=== PATIENT | female | born 1985 | race Caucasian/White ===

== ENCOUNTER 2016-08-03 05:34 | Inpatient (IN) | payer OTHER ==
[~2016-08-03] VITALS: Ht 172.7 cm; Wt 138.8 kg
[2016-08-03 05:57] VITALS: BP 131/90
[2016-08-03] MEDS ORDERED: PRENATAL TABLE1 EAC2 PO (07:31)
--- NOTE | 2016-08-03 07:37 | History & Physical ---
General Information and HPI MD Statement: I have seen and personally examined KATHERINE PERKINS and documented this H& P. The patient is a 31 year old female at [40] weeks and [1] days gestation who presented with a chief complaint of [+ shoulder dystocia screen- Mat BMI 46]. Source of Information: patient, old records Exam Limitations: no limitations History of Present Illness: 31-year-old with LMP of 10/27/2015 and a CLAY of 08/02/2016 presents at 40 weeks 1/7 days with history of positive shoulder screen and maternal BMI of 46. Issues for this #1 smoker patient was initially smoking 5-6 cigarettes daily she is down to 1 cm for several days. #2 maternal BMI it started the was 40.4 currently at 46 #3 history of abnormal Pap had laser in the past. Normal cytology of 11/22/2015 #4 history of hypothyroidism. TFTs stable off medication #5 history of depression the past currently not on any medications but has been in contact with her therapist. 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 Medical History Blood Transfusion Hx: No Neurological: NONE EENT: NONE Cardiovascular: NONE Respiratory: NONE Gastrointestinal: NONE Hepatic: NONE Renal: NONE Musculoskeletal: NONE Psychiatric: depression, no current meds during this Endocrine: history of past hypothyroidism, normal TFTs without medication during the , BMI of 46 Blood Disorders: NONE Cancer(s): NONE 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 Home Who Do You Live With? spouse, self Primary Language: Lao Smoking Status: Current Everyday Smoker ETOH Use: denies use Illicit Drug Use: denies illicit drug use Exam & Diagnostic Data Obstetric Exam Wgt Gained During : 48 Pelvimetry: unproven Dilation (cm): 1 Effacement (%): 80 Station: -2 Membranes: intact Fluid: unknown Fundal Height (cm): 39 Multiple Gestation? No Contractions: none #1 - FHR Baseline: 140 Category: 1 Estimated Weight: 8#8 Presentation: vtx Patient for Induction? No Physical Exam General Appearance Alert, Oriented X3, Cooperative, No Acute Distress Skin No Significant Lesion Cardiovascular Regular Rate Lungs Normal Air Movement Abdomen Normal Bowel Sounds, Soft, No Tenderness, No Hepatospenomegaly, fundal height 38 cm estimated weight 8 lbs. 8 oz. heart rate 140s category 1 no palpable contractions Neurological Normal Gait, Normal Speech Extremities No Tenderness/Swelling Reproductive (FEMALE) Normal female genitalia Labs Blood Type & Rh: O+ Antibody Screen: Negative Hct/Hgb & Platelets #1: 12.9/39.4 platelet count of 2 71,000 Hct/Hgb & Platelets #2: 1.6/36.8, platelet count 282,000 Rubella: Immune VDRL #1: Negative VDRL #2: Negative HbsAg: Negative HIV #1: Negative HIV #2 Negative 1 Hr P Group B Strep: Positive Initial Ultrasound: Initial scan on 12/30/2015 size equals dates equals ultrasound 8 weeks 2 days confirming CLAY of 08/02/2016 she was Anatomy Ultrasound: 03/17/2016 size equals dates who was ultrasounds 20 weeks 2/7 days female normal anatomy normal ovaries normal uterus Ultrasound for EFW: Ultrasound for estimated weight was performed on 519 baby weighed 8 lbs. 8 oz. shoulder screen was performed and this showed an intermediate risk of shoulder dystocia. Maternal weight of BMI 46.4 weight of 306 pounds with a height of 5 feet 8 inches Genetic Testing: Normal maternal T 21 female declined cystic fibrosis screening. Also declined maternal serum AFP Assessment/Plan As Ranked By This Provider Problem List: 1. 2. Morbid obesity with BMI of 40.0-44.9, adult 3. Smoker Core Measures/Miscellaneous Webster Catheter Date In: 08/03/16 Still Needed? Yes Venous Thromboembolism VTE Risk Factors: Obesity, /, Smoking VTE Contraindications: Abn Clotting Times (fall risk) VTE Diagnosis: No Beta Daren Is Beta Daren a Home Med? No If No, Why Not? not indicated Antibiotics Is Patient on Antibiotics? Yes (antibiotic prophylaxis for bot) If Yes: prophylaxis Attending MD Review Statement Attending Statement Attending MD Statement: examined this patient, discussed with family, reviewed EMR data (avail), discussed w/nursing Attending Assessment/Plan: anisa duggan md
--- NOTE | 2016-08-03 09:29 | Labor & Delivery Summary ---
Delivery Summary Section: Section: primary Indication: Maternal BMI 46.8, positive intermediate shoulder dystocia risk screen, unfavorable cervix Episiotomy/Lacerations: Episiotomy/Lacerations: none Placenta: Placenta: spontanteous, normal, 3 vessel, double nuchal cord Anesthesia: spinal Cord PH Value: Not applicable Baby's Weight: 8 lbs. 5 oz. Apgars - 1 Min: 8 Apgars - 5 Min: 9 Additional Comments: No surgical complications will receive Lovenox
--- NOTE | 2016-08-03 09:41 | Operative Report ---
Operative/Inv Procedure Report Surgery Date: 08/03/16 Name of Procedure: Primary low cervical transverse section Pre-Operative Diagnosis: Intrauterine at 40 weeks 1/7 days, maternal BMI of 46.8, positive intermediate risk shoulder dystocia screen, unfavorable cervix. Post-Operative Diagnosis: Same plus unengaged vertex requiring vacuum-assisted delivery Estimated Blood Loss: 500 ML Surgeon/Deckhand Crab Boat: ANTONIO ESPARZA,Erna FLORIAN. Anesthesia: spinal Monitors: Pulse ox, BP cuff, EKG electrodes IV Fluids: 800 ML crystalloid Implants: None Urine Output: 150 ML Drains: Webster Specimens: none9 Microbiology: None Tourniquet: None Complications: None Condition: Good Operative Indication: 31-year-old 2 para 0 at 40 weeks 1/7 days with personal BMI of 46.8, estimated weight at the office of 8 lbs. 8 oz. giving a positive intermediate risk for shoulder dystocia. Patient has an unfavorable cervix for induction. Patient accepts primary elective Operative/Procedure Note Note: Patient was brought to the operating room and placed in the OR table in the 6 seated position to be ready for the spinal anesthetic. Once in the OR she was placed in pneumatic compression boots, given 2 g IV Kefzol, and timeout was discussed by the team and agreed upon. After placement of spinal anesthetic patient was then placed in the dorsal supine position with a right hip wedge. Patient was prepped and draped in usual sterile fashion. After evidence of good analgesia, transverse incision was made 2 fingerbreadths above the symphysis. Transverse incision was carried down to the fascia. The fascia was incised transversely and manually divided. Rectus muscles were divided in the midline and manually . Parietal peritoneum was identified elevated and incised with Metzenbaums. The parietal peritoneum was then opened manually the utero vesicular fold the bladder peritoneum was visualized, the peritoneal fold was elevated incised transversely and the bladder flap was reflected inferiorly. Transverse incision was made in the low uterine segment, and the amniotic cavity was entered bluntly. Clear fluid was noted. The uterine incision was extended the right left sides manually. Unengaged vertex was encountered. The baby was easily brought down to the level of the uterine incision. Copious clear clear amniotic fluid was noted at this time. Therefore a Kiwi vacuum was placed on the scalp. Appropriate pressure was applied and with fundal pressure the 's head was delivered easily through the uterine incision and abdominal wall incision. Mouth and nasopharynx were bulb suctioned on the intra-abdominal wall. Upon nuchal cord 2 was easily reduced. The rest of infant's body was delivered without complication at 8:11 on 08/03/2016. Infant's cord was doubly clamped cut and the was handed to pediatric team for evaluation. Live viable female , weight 8 lbs. 5 oz., 3760 g, Apgars 8, 9, and 9. Placenta was spontaneously delivered intact normal configuration 3 vessel cord. Uterus was then exteriorized and draped with wet lap pad. Uterine cavity was clean of any residual membranes. Uterine muscle was then infiltrated with 10 units of Pitocin. Normal configuration to the uterus fallopian tubes and ovaries noted. The uterine incision was closed with 2 separate segments first layer running locking suture and the second layer was running imbricating suture. The pelvis was irrigated and the fluid was aspirated. Uterus was returned the abdominal pelvic cavity. Small bleeder was noted in the midline of the uterine incision. Single [id number] suture was used to manage bleeding. Good hemostasis continued at this point. Parietal peritoneum was closed with running suture. Muscle reapproximated midline with horizontal mattress. Good hemostasis at all levels of closure. Fascia closed with 2 separate segments running intermittently locking suture of #1 Vicryl. This CBGs tissue was irrigated and the fluid was aspirated. Subcutaneous tissue was then closed with actually 2 separate segments of running plain gut to close was nearly 3 inches deep of subcutaneous tissue. Skin edges reapproximated with Monocryl. At completion the procedure sponge needle and spent counts were correct 4. Manual expression of any residual clot was undertaken in the OR, minimal bleeding noted, and a vaginal exam showed no blood clot in the upper vaginal vault nor in the low uterine segment. Patient was taken recovery room in good condition Findings: Time of delivery 8:11 on 08/03/2016. Live viable female unengaged vertex recurring vacuum assisted delivery. weight 8 lbs. 5 oz. 3760 g, Apgars 8, 9, and 9. No uterine atony. No complications, and good hemostasis at all levels of closure Discharge Disposition: CC: ERNA NIETO DO
[2016-08-04 09:12] LABS: ABSOLUTE BASOPHIL COUNT 0.1 /CUMM (0.0-0.2); ABSOLUTE EOSINOPHIL COUNT 0.1 /CUMM (0.0-0.7); ABSOLUTE GRANULOCYTE CT 9.1 /CUMM (1.4-6.5); ABSOLUTE LYMPH COUNT 5.2 /CUMM (1.2-3.4); ABSOLUTE MONOCYTE COUNT 1.3 /CUMM (0.10-0.60); BASOPHIL % 0.4 % (0.0-2.0); EOSINOPHIL % 0.4 % (0-5); GRANULOCYTE % 57.8 % (42.2-75.2); MEAN CORPUSCULAR HGB 31.7 PG (27.0-31.0); MEAN CORPUSCULAR HGB CONC 32.9 G/DL (33.0-37.0); MEAN CORPUSCULAR VOLUME 96.2 FL (81.0-99.0); MEAN PLATELET VOLUME 6.5 FL (7.4-10.4); PLATELET COUNT 349 /CUMM (130-400); RBC DISTRIBUTION WIDTH 13.8 % (11.5-14.5); RED BLOOD CELL CT 3.35 /CUMM (4.20-5.40); WHITE BLOOD CELL COUNT 15.8 /CUMM (4.8-10.8)
[2016-08-04 09:56] LABS: HEMATOCRIT 32.2 % (37-47)
--- NOTE | 2016-08-04 10:16 | PN- Post Delivery/GYN ---
Subjective Subjective: feeling well Review of Systems Constitutional: Reports: no symptoms, see HPI, diaphoresis, malaise, weakness, unexplained weight loss. Denies: chills, fever. Gastrointestinal: Denies: abdominal pain, diarrhea, nausea, vomiting. Neurological/Psychological: Denies: depressed. Objective Last 24 Hrs of Vital Signs/I&O vss Vital Signs Date Time Temp Pulse Resp B/P B/P Pulse O2 O2 Flow FiO2 Mean Ox Delivery Rate 08/03 1057 Room Air Room Air Physical Exam General Appearance Alert, Oriented X3, Cooperative, No Acute Distress Cardiovascular Regular Rate Lungs Clear to Auscultation Abdomen Soft, fundus firm incision clean and dry Pelvic (FEMALE) lochia serosanganous Last 24 Hrs of Labs/Bradly: Laboratory Tests 08/04/16 0750: CBC w Diff NO MAN DIFF REQ, RBC 3.35 L, MCV 96.2, MCH 31.7 H, RDW 13.8, MPV 6.5 L, Gran % 57.8, Lymphocytes % 32.9, Monocytes % 8.5, Eosinophils % 0.4, Basophils % 0.4, Absolute Granulocytes 9.1 H, Absolute Lymphocytes 5.2 H, Absolute Monocytes 1.3 H, Absolute Eosinophils 0.1, Absolute Basophils 0.1, PUBS MCHC 32.9 L Assessment/Plan Assessment/Plan pod #1 vss afebrile plan ambulate Problem List: 1. 2. Morbid obesity with BMI of 40.0-44.9, adult Attending MD Review Statement Attending Statement Attending MD Statement: examined this patient, discussed with family, discussed with nursing
[2016-08-05] MEDS ORDERED: IBUPROFEN800 M1 PO (08:25)
[2016-08-05] MEDS ORDERED: PERCOCET 5-3251 EACH PO (08:25)
--- NOTE | 2016-08-05 09:35 | PN- Post Delivery/GYN ---
Subjective Subjective: DOING WELL READY FOR DISCHARGE Review of Systems: NEG FOR CARDIAC PULMONARY GI COMPLAINTS Objective Last 24 Hrs of Vital Signs/I&O AFEBRILE VSS Physical Exam General Appearance Alert, Oriented X3, Cooperative, No Acute Distress Skin No Significant Lesion Cardiovascular Regular Rate Lungs Normal Air Movement Abdomen Normal Bowel Sounds, Soft, No Tenderness, No Hepatospenomegaly, UTERUS FIRM MIDLINE NONTENDER, 3 FB BELOW UMBILICUS INCISION CLEAN DRY INTACT Neurological Normal Gait, Normal Speech Extremities No Tenderness/Swelling Reproductive (FEMALE) Normal female genitalia Current Medications: Current Medications Sig/Xuan Start time Last Medication Dose Route Stop Time Status Admin Acetaminophen 1,000 MG Q6P PRN 08/03 0945 AC 08/03 IV 1207 Acetaminophen 650 MG Q4P PRN 08/03 09 AC PO Bisacodyl 10 MG DAILY NEEDED PRN 08/03 09 AC IL Bisacodyl 5 MG DAILY NEEDED PRN 08/03 09 AC PO Calcium Carbonate 500 MG DAILY PRN 08/03 1500 AC PO Diphenhydramine HCl 25 MG Q6P PRN 08/03 944 AC IV Docusate Sodium 100 MG AT BEDTIME PRN 08/03 0900 AC 08/03 PO 2214 Enoxaparin Sodium 40 MG DAILY@2100 08/03 2100 AC 08/04 SC 2227 Hydroxyzine HCl 50 MG AT BEDTIME NEED.. 08/04 0000 AC PO Ibuprofen 800 MG .STK-MED ONE 08/04 1933 DC PO 08/04 1934 Ibuprofen 800 MG .STK-MED ONE 08/04 1402 DC PO 08/04 1403 Ibuprofen 800 MG Q6P PRN 08/03 09 AC 08/05 PO 0750 Magnesium Hydroxide 30 ML DAILY NEEDED PRN 08/03 09 AC PO Metoclopramide HCl 10 MG Q6P PRN 08/03 0945 AC 08/03 IV 0938 Naloxone HCl 0.2 MG .Q5MIN PRN 08/03 944 AC IV Oxycodone/ 1 TAB Q4P PRN 08/03 09 AC 08/05 Acetaminophen PO 0751 Oxycodone/ 2 TAB Q4P PRN 08/03 0900 AC 08/04 Acetaminophen PO 2006 Promethazine HCl 25 MG Q6P PRN 08/03 1245 AC 08/03 IM 08/10 1244 1252 Senna 187 MG AT BEDTIME NEED.. 08/03 0900 AC PO Assessment/Plan Assessment/Plan STABLE POD/ PPD #2 WANTS TO GO HOME TODAY DISCHARGE HOME Problem List: 1. 2. Morbid obesity with BMI of 40.0-44.9, adult 3. Smoker Attending MD Review Statement Attending Statement Attending MD Statement: examined this patient, discussed with family, reviewed EMR data (avail), discussed with nursing Attending Assessment/Plan: STEFFANIE ESPARZA
--- NOTE | 2016-08-05 10:06 | Discharge Summary ---
Visit Information Visit Dates Admission Date: 08/03/16 Discharge Date: 08/05/16 Hospital Course Course Attending Physician: ANTONIO ESPARZA,RAYMUNDO Potts Primary Care Physician: PO ESPARZA,LILIAM Kraus Hospital Course: 31-year-old with LMP of 10/27/2015 and a CLAY of 08/02/2016 presents at 40 weeks 1/7 days with history of positive shoulder screen and maternal BMI of 46. Issues for this #1 smoker patient was initially smoking 5-6 cigarettes daily she is down to 1 cm for several days. #2 maternal BMI it started the was 40.4 currently at 46 #3 history of abnormal Pap had laser in the past. Normal cytology of 11/22/2015 #4 history of hypothyroidism. TFTs stable off medication #5 history of depression the past currently not on any medications but has been in contact with her therapist. Patient underwent a primary low cervical transverse section on 2016. Time of delivery was 08:11, live viable female 8 lbs. 5 oz. 3760 g Apgars were 8, 9, and 9. Average blood loss with delivery application to the delivery. PRE-OP CBC: 12.7/38 POD #1 10.6/32, 349,000 Postoperatively she was maintained on Lovenox 50 mg per day. Patient was easily advanced to regular diet. Her pain was easily controlled with by mouth pain medicine. By the second postoperative day patient was ambulating without difficulty and the hallway, her pain was controlled with by mouth pain medicine. Her lochia was average. And she remained afebrile. Her incision remains clean dry and intact. Patient was requesting to go home on day #2, she had adequate support at home, so patient was therefore discharged to home on 2016 Complications: None Allergies: Coded Allergies: hydrocodone (From VICODIN) (Intermediate, RASH 08/03/16) Significant Procedures: Primary low cervical transverse section Pertinent Lab Results: Postop day 1 hemoglobin 10.6, hematocrit 32.2 platelet count 349,000 Disposition Summary Disposition Principal Diagnosis: Term live child delivered, female Additional Diagnosis: #1, morbid obesity, BMI 46.7 #2, intermediate risk shoulder screen positive for shoulder dystocia risk. #3, smoker-patient advised to quit #4, history of prior depression asymptomatic so far in the time Discharge Disposition: home or self care Discharge Instructions General Discharge Information Code Status: Full Code Patient's Diet: Regular Patient's Activity: Self-limited will be at full activities by 6 weeks Follow-Up Instructions/Appts: Patient and her daughter will be seen back at the childbirth center, 08/07/2016. She'll be seen in the office 2 weeks and 6 weeks Medications at Discharge Discharge Medications: Continue taking these medications: Vit No.130/Iron/FA ( Tablet) 27 MG IRON-800 MCG TABLET 1 Tablet ORAL DAILY Start taking the following new medications: Ibuprofen (Ibuprofen) 800 MG TABLET 800 Milligram ORAL EVERY SIX HOURS NEEDED as needed for UTERINE CRAMPING Qty = 60 Refills = 6 Comments: Last Taken:08/05/16 Time:0751 Oxycodone HCl/Acetaminophen (Percocet 5-325 MG Tablet) 5 MG-325 MG TABLET 1-2 Tablet ORAL Q4P -6 P as needed for PAIN SCALE 4-10 Qty = 30 No Refills Comments: Last Taken:08/05/16 Time:2241 Copies To: ERNA NIETO DO, MD Review Statement Documenting Attending: ANTONIO ESPARZA,RAYMUNDO Potts
== END 2016-08-05 09:30 | DRG 765 ==
LOC: GNO 05:34
PROVIDERS: Obstetrics & Gynecology; ADMIT Obstetrics & Gynecology
PROC: 10D00Z1 Extraction of Products of Conception, Low, Open Approach (ICD-10-PCS; principal; 2016-08-03)
DX: O34.33 Maternal care for cervical incompetence, third trimester (principal); Z68.42 Body mass index [BMI] 45.0-49.9, adult; E66.01 Morbid (severe) obesity due to excess calories; O66.0 Obstructed labor due to shoulder dystocia; Z3A.40 40 weeks gestation of pregnancy; Z37.0 Single live birth; O69.81X0 Labor and delivery complicated by cord around neck, without compression, not applicable or unspecified; E03.9 Hypothyroidism, unspecified; O99.820 Streptococcus B carrier state complicating pregnancy; O99.334 Smoking (tobacco) complicating childbirth
CPT/HCPCS: GNOS; 87086; J0131; J0690; J1100; J1200; J1650; J1885; J2405; J2550; J2765; J7120